=== PATIENT | male | born 1965 | race Caucasian/White ===

== ENCOUNTER → 2016-10-19 17:46 | Outpatient (CLI) | payer OTHER ==
[2016-10-19 19:13] LABS: CHOL - HDL RATIO 5.2 ratio (2.3-4.9); LDL-HDL RATIO 3.7 ratio (1.5-3.5)
== END | disposition home or self-care (01) ==
LOC: D.LABREF 17:46
PROVIDERS: Internal Medicine Interventional Cardiology
DX: E78.5 Hyperlipidemia, unspecified (principal)